=== PATIENT | female | born 1965 | race Caucasian/White ===

== ENCOUNTER 2021-05-18 09:02 | Outpatient (REF) | payer OTHER, SELFPAY ==
[2021-05-19 08:07] LABS: SARS COV2 IgG Negative (Negative)
== END 2021-05-18 09:03 | disposition home or self-care (01) ==
LOC: HO.MANLDS 09:02
PROVIDERS: PCP Internal Medicine; Visit Provider Physician Assistant
DX: U07.1 COVID-19 (principal)
CPT/HCPCS: 36415; 86769

== ENCOUNTER 2022-02-01 09:35 | Outpatient (REF) | payer OTHER, SELFPAY ==
--- NOTE | ~2022-02-01 | MM_ITS ---
EXAMINATION: MM SCREENING DIGITAL BREAST TOMOSYNTHESIS, BILATERAL CLINICAL INFORMATION: Screening. Asymptomatic. The lifetime risk of breast cancer based on the Tyrer-Cuzick Model is 27%. COMPARISON: Mammography: 08/15/2018, 03/22/2017, 09/18/2012 TECHNIQUE: Digital breast tomosynthesis is performed in both the craniocaudal and mediolateral oblique views along with computer-aided detection (CAD). Synthesized 2D images are generated from the tomosynthesis. Additional right CC view is provided. FINDINGS: There are scattered areas of fibroglandular density (ACR BI-RADS breast composition Category b). Parenchymal pattern is similar to prior exams. There is no interval mass or architectural abnormality or developing density. No abnormal calcifications. The axilla and skin contours are unremarkable. No significant changes. MM/MM tomosynthesis screening BI IMPRESSION: No mammographic evidence of malignancy. ASSESSMENT: BI-RADS 1: Negative RECOMMENDATION: 1. Routine annual mammography screening. 2. The lifetime risk of breast cancer based on the Tyrer-Cuzick Model is 27%. Additional annual adjunct screening with breast MRI may be of benefit in women with a risk score of 20% or greater. This patient's information was entered into a reminder system with a target due date for their next mammogram.
== END 2022-02-01 09:36 | disposition home or self-care (01) ==
LOC: HO.MAMMO 09:35
PROVIDERS: PCP Internal Medicine; Visit Provider Internal Medicine
DX: Z12.31 Encounter for screening mammogram for malignant neoplasm of breast (principal)
CPT/HCPCS: 77063; 77067

== ENCOUNTER 2022-02-08 09:47 | Outpatient (REF) | payer OTHER, SELFPAY ==
[2022-02-08 11:11] LABS: MANUAL DIFF FLAG NO
[2022-02-08 11:16] LABS: Basophils Absolute Auto 0.1 X10*3/uL (0.0-0.2); Basophils Percent Auto 0.8 % (0-2); Eosinophils Absolute Auto 0.3 X10*3/uL (0.0-0.4); Eosinophils Percent Auto 4.8 % (0-4); Hematocrit 40.8 % (37.0-47.0); Imm Gran Abs Auto 0.04 X10*3/uL (0.00-0.03); Imm Gran Pct Auto 0.6 % (0.0-0.4); Lymphocytes Absolute Auto 2.1 X10*3/uL (1.2-4.9); Mean Corpuscular HGB Conc 31.9 g/dl (31.0-35.0); Mean Corpuscular Hemoglobin 29.2 pg (27.0-33.0); Mean Corpuscular Volume 91.7 fL (80.0-98.0); Mean Platelet Volume 10.1 fL (9.4-12.3); Monocytes Absolute Auto 0.5 X10*3/uL (0.1-1.2); Monocytes Percent Auto 6.7 % (2-11); Neutrophils Absolute Auto 4.1 x10*3/uL (2.0-8.3); Neutrophils Percent Auto 58.1 % (45-73); Platelet Count 338 X10*3/uL (160-400); Red Blood Count 4.45 X10*6/uL (4.20-5.50); White Blood Count 7.1 X10*3/uL (4.8-10.8)
[2022-02-08 11:52] LABS: C Reactive Protein 0.28 mg/dL (< or = 0.50); Rheumatoid Factor < 15.0 IU/mL (<15.0)
[2022-02-08 11:57] LABS: Erythrocyte Sedimentation Rate 7 MM/HR (0-20)
[2022-02-09 13:27] LABS: Antibody to SS-A Antigen <1.0 NEG AI (<1.0 NEG); Antibody to SS-B Antigen <1.0 NEG AI (<1.0 NEG)
[2022-02-09 14:35] LABS: Anti Nuclear Antibody Screen NEGATIVE (NEGATIVE)
== END 2022-02-08 09:48 | disposition home or self-care (01) ==
LOC: HO.MANLDS 09:47
PROVIDERS: PCP Physician Assistant; Visit Provider Physician Assistant
DX: L40.59 Other psoriatic arthropathy (principal)
CPT/HCPCS: 36415; 85025; 85652; 86038; 86039; 86140; 86235; 86431

== ENCOUNTER 2022-04-19 09:18 | Outpatient (REF) | payer OTHER, SELFPAY ==
[2022-04-19 12:34] LABS: Alanine Aminotransferase 15 U/L (0-31); Albumin Level 4.3 g/dL (3.5-5.0); Alkaline Phosphatase 155 U/L (39-117); Anion Gap 15 (12-20); Aspartate Amino Transferase 15 U/L (5-31); Bilirubin Total 0.9 mg/dL (0.0-1.0); Blood Urea Nitrogen 14 mg/dL (9-16); Carbon Dioxide 24 mmol/L (22-29); Chloride 107 mmol/L (96-108); Cholesterol 185 mg/dL; Estimated Glomerular Filt Rate > 60; Glucose Random 86 mg/dL (60-115); HDL Cholesterol 65 mg/dL; LDL Cholesterol Calculated 109 mg/dl; Potassium 3.7 mmol/L (3.3-5.1); Sodium 142 mmol/L (135-145); Total Protein 7.2 g/dL (6.5-8.0); Triglycerides 57 mg/dL
== END 2022-04-19 09:19 | disposition home or self-care (01) ==
LOC: HO.MANLDS 09:18
PROVIDERS: Visit Provider Physician Assistant
DX: E78.2 Mixed hyperlipidemia (principal)
CPT/HCPCS: 36415; 80053; 80061

== ENCOUNTER 2023-07-25 09:30 | Outpatient (REF) | payer OTHER, SELFPAY ==
--- NOTE | ~2023-07-25 | MM_ITS ---
EXAMINATION: MM SCREENING DIGITAL BREAST TOMOSYNTHESIS, BILATERAL CLINICAL INFORMATION: Screening. Asymptomatic. COMPARISON: Mammography: This study is compared with prior exams dating back to 2017. TECHNIQUE: Digital breast tomosynthesis is performed in both the craniocaudal and mediolateral oblique views along with computer-aided detection (CAD). Synthesized 2D images are generated from the tomosynthesis. FINDINGS: The breasts are almost entirely fatty (ACR BI-RADS breast composition Category a). There are no significant masses, abnormal calcifications, or other abnormalities. MM/MM tomosynthesis screening BI IMPRESSION: No mammographic evidence of malignancy. ASSESSMENT: BI-RADS BI-RADS 1 - Negative RECOMMENDATION: Routine annual mammography screening. 1 year F/U This examination should not preclude the clinical evaluation of a suspicious palpable abnormality. This patient's information was entered into a reminder system with a target due date for their next mammogram.
== END 2023-07-25 09:31 | disposition home or self-care (01) ==
LOC: HO.MAMMO 09:30
PROVIDERS: PCP Internal Medicine; Visit Provider Internal Medicine
DX: Z12.31 Encounter for screening mammogram for malignant neoplasm of breast (principal)
CPT/HCPCS: 77063; 77067

== ENCOUNTER → 2023-07-25 10:15 | Outpatient (BNV) | payer OTHER, SELFPAY | PROVIDERS: PCP Internal Medicine; Visit Provider Radiology Diagnostic Radiology | DX: Z12.31 Encounter for screening mammogram for malignant neoplasm of breast (principal) | CPT/HCPCS: 77063; 77067 ==

== ENCOUNTER 2025-01-26 10:19 | Outpatient (REF) | payer OTHER, SELFPAY ==
[2025-01-26 13:24] LABS: MANUAL DIFF FLAG NO
[2025-01-26 13:27] LABS: Basophils Absolute Auto 0.1 X10*3/uL (0.0-0.2); Basophils Percent Auto 0.9 % (0-2); Eosinophils Absolute Auto 0.2 X10*3/uL (0.0-0.4); Eosinophils Percent Auto 2.7 % (0-4); Hematocrit 35.5 % (37.0-47.0); Hemoglobin 11.6 g/dl (12.0-16.0); Imm Gran Abs Auto 0.03 X10*3/uL (0.00-0.03); Imm Gran Pct Auto 0.4 % (0.0-0.4); Lymphocytes Absolute Auto 2.7 X10*3/uL (1.2-4.9); Mean Corpuscular HGB Conc 32.7 g/dl (31.0-35.0); Mean Corpuscular Hemoglobin 28.7 pg (27.0-33.0); Mean Corpuscular Volume 87.9 fL (80.0-98.0); Mean Platelet Volume 10.4 fL (9.4-12.3); Monocytes Absolute Auto 0.5 X10*3/uL (0.1-1.2); Monocytes Percent Auto 6.1 % (2-11); Neutrophils Percent Auto 53.9 % (45-73); Platelet Count 376 X10*3/uL (160-400); Red Blood Count 4.04 X10*6/uL (4.20-5.50); Red Cell Distribution Width 14.8 % (11.0-16.0); White Blood Count 7.4 X10*3/uL (4.8-10.8)
[2025-01-26 13:37] LABS: Estimated Average Glucose 108 mg/dL; Hemoglobin A1C 111.1286 umol/L; Hemoglobin A1c % 5.4 % (<6.0); Total Hemoglobin (HGBA1C) 3128.3282 umol/L
[2025-01-26 13:54] LABS: Alanine Aminotransferase 19 U/L (0-31); Albumin Level 3.9 g/dL (3.5-5.0); Alkaline Phosphatase 98 U/L (39-117); Anion Gap 12 (12-20); Aspartate Amino Transferase 26 U/L (5-31); Bilirubin Total 0.6 mg/dL (0.0-1.0); Blood Urea Nitrogen 15 mg/dL (9-16); Calcium 8.9 mg/dL (8.4-10.2); Carbon Dioxide 26 mmol/L (22-29); Chloride 106 mmol/L (96-108); Estimated Glomerular Filt Rate > 60; Glucose Random 77 mg/dL (60-115); Potassium 3.7 mmol/L (3.3-5.1); Sodium 140 mmol/L (135-145); Total Protein 7.2 g/dL (6.5-8.0)
[2025-01-26 14:03] LABS: Thyroid Stimulating Hormone 95.14 uIU/mL (0.32-4.0)
[2025-01-26 14:48] LABS: T4 Thyroxine 4.7 ug/dL (4.5-12.0)
== END 2025-01-26 10:20 | disposition home or self-care (01) ==
LOC: HO.MANLDS 10:19
PROVIDERS: Visit Provider Physician Assistant
DX: E00.0 Congenital iodine-deficiency syndrome, neurological type (principal); R73.01 Impaired fasting glucose
CPT/HCPCS: 36415; 80053; 83036; 84436; 84443; 85025

== ENCOUNTER 2025-02-27 10:53 | Outpatient (REF) | payer OTHER, SELFPAY ==
--- NOTE | ~2025-02-27 | MR_ITS ---
EXAMINATION: MR BRAIN WITHOUT CONTRAST CLINICAL INFORMATION: Headache. Blurred vision. Dizziness. Prior strokes. COMPARISON: December 17, 2017. TECHNIQUE: MRI of the brain was obtained using routine sequences without contrast. FINDINGS: No restricted diffusion. No acute intracranial hemorrhage, mass effect, midline shift, hydrocephalus or herniation. Sanchez-white matter differentiation is normal. Focal encephalomalacia/volume loss without seated susceptibility signal and hyperintense T2 FLAIR signal involving the posterior inferior left cerebellum. Bilateral multifocal patchy and punctate deep periventricular white matter and subcortical white matter hyperintense T2 FLAIR signal, the most conspicuous, 5 mm in maximum diameter, in the left frontal opercular white matter. Flow-void signal within the main cerebral vessels is normal. Prominence of the extra-axial CSF spaces cerebral sulci and ventricles. Sellar/suprasellar region is normal. Craniocervical junction is intact and normal. MR/MR head/brain wo con IMPRESSION: No acute stroke/nonhemorrhagic ischemia. Prior vascular insult left PICA territory. Small vessel occlusive disease. 5 mm hyperintense T2 FLAIR signal subcortical left frontal opercular. This could be related to small vessel occlusive disease. Stable since 2017. Electronically signed by: Daniel Miller MD 03/01/2025 11:14 AM EDT
== END 2025-02-27 10:54 | disposition home or self-care (01) ==
LOC: HO.MRI 10:53
PROVIDERS: PCP Internal Medicine; Visit Provider Physician Assistant
DX: I63.9 Cerebral infarction, unspecified (principal)
CPT/HCPCS: 70551

== ENCOUNTER → 2025-02-27 11:17 | Outpatient (BNV) | payer OTHER, SELFPAY | PROVIDERS: PCP Internal Medicine; Visit Provider Radiology Diagnostic Radiology | DX: R50.9 Fever, unspecified (principal); R42 Dizziness and giddiness; H53.8 Other visual disturbances | CPT/HCPCS: 70551 ==

== ENCOUNTER 2025-03-17 20:11 | Outpatient (REF) | payer OTHER, SELFPAY | END 2025-03-17 20:12 | disposition home or self-care (01) | LOC: HO.MRI 20:11 | PROVIDERS: Visit Provider Physician Assistant | DX: Z13.89 Encounter for screening for other disorder (principal) ==

== ENCOUNTER 2025-06-28 09:13 | Outpatient (REF) | payer OTHER, SELFPAY ==
--- OUTSIDE RECORDS SUMMARY | 2025-06-28 10:14 | XMS_ITS | Clinical Summary ---
Author Organization [facility] Address [address] [place], [place] [id number] Phone Care Team Providers Care Vacuum Technician Name Role Phone Nba Bragg DO Primary Care Provider [phone] Allergies Active Allergy Reactions Criticality Noted Date Comments Codeine Dizziness 12/24/2023 Levonorgestrel-Ethinyl Estrad Sneezing 2023 Morphine 12/24/2023 Medications lisinopril (PRINIVIL,ZESTR IL) 20 MG tablet Take 20 mg by mouth daily. Active levothyroxine (TIROSINT) 150 mcg Cap Take 150 mcg by mouth daily. 2 tablets Active apixaban (ELIQUIS) 5 mg tablet Take 5 mg by mouth 2 (two) times a day. Active cyanocobalam-me cobalamin-folic 1,000-200 mcg ODT Active cyanocobalamin (VITAMIN B-12) 1,000 mcg/mL injection INJECT 1ML UNDER THE SKIN ONCE WEEKLY - NEED APPOINTMENT FOR FURTHER REFILLS 4 Active FLUoxetine (PROZAC) 20 MG capsule Take 3 capsules by mouth every morning. 4 Active gemfibroziL (LOPID) 600 MG tablet Take 600 mg by mouth daily. Active multivit with minerals/lutein (MULTIVITAMIN 50 PLUS ORAL) Active BD INTEGRA SYRINGE 3 mL 23 gauge x 1 Syrg USE ONE SYRINGE EVERY WEEK 4 Active vitamin D3-vit K1-vit MK4-MK7 50-500-1,500 mcg Cap Active rosuvastatin (CRESTOR) 5 MG tablet Take 1 tablet (5 mg total) by mouth daily. 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 Not on broderick e 04/22/2023 Are you concerned about learning? Not on file 04/22/2023 No 04/22/2023 No 04/22/2023 Digital Access Answer Date Recorded No 04/22/2023 No 04/22/2023 Reliable internet access at home? Not on file 04/22/2023 Device with a working camera? Not on file Comments Unknown Sex and Gender Information Value Date Recorded Sex Assigned at Female 12/21/2023 6:45 AM EST Legal Sex Female 5:42 PM EST Gender Identity Female 12/21/2023 6:45 AM EST Sexual Orientation Not on file Last Filed Vital Signs Vital Sign Reading Time Taken Comments Blood Pressure 118/90 12/24/2023 8:28 AM EST Pulse 101 12/24/2023 8:28 AM EST Temperature - - Respiratory Rate - - Oxygen Saturation 97% 12/24/2023 8:28 AM EST Inhaled Oxygen Concentration - - Weight 139.3 kg (307 lb) 12/24/2023 8:28 AM EST Height - - Body Mass Index - - Plan of Treatment Health Maintenance Due Date Last Done Comments Adult Td,Tdap Booster 1963 CREATININE LEVEL 1963 POTASSIUM LEVEL 1963 TSH LEVEL 1963 DEPRESSION SCREENING 1975 SMOKING Hx and SMOKELESS TOB ACCO SCREENING 1976 HEPATITIS C SCREENING 1981 HIV ONE-TIME SCREENING (18-6 5 YEARS) 1981 LIPID PANEL 1981 PAP SMEAR 1984 MAMMOGRAM 2003 COLOGUARD 2008 COLONOSCOPY 2008 COLORECTAL CANCER SCREENING 2008 FIT TEST 2008 FOBT 2008 SIGMOIDOSCOPY 2008 VIRTUAL COLONOSCOPY 2008 PNEUMOCOCCAL VACCINES (50+ y ears) (1 of 1 - PCV) 2013 ZOSTER VACCINES (1 of 2) 2013 RSV VACCINE (1 - Risk 60-74 years 1-dose series) 2023 COVID-19 VACCINE (2023-2 5 season) 2024 HEPATITIS A VACCINES Aged Out No long er eligible based on patient's age to complete this topic HIB VACCINES Aged Out No longer eligi ble based on patient's age to complete this topic MENINGOCOCCAL VACCINES (ACWY) Aged Out No longer eligible based on patient's age to complete this topic MENINGOCOCCAL VACCINES (B) Aged Out N o longer eligible based on patient's age to complete this topic Medical Devices Not on file Insurance Care Teams Vacuum Technician Relationship Specialty Start Date End Date Nba Bragg DO [email or web address] PCP - General Internal Medicine 04/22/23 Additional Source Comments The information contained in this document represents components of the legal health record. It is not the complete legal health record.[facility]
--- OUTSIDE RECORDS SUMMARY | 2025-06-28 10:15 | XMS_ITS | Patient Health Record ---
Author Organization [facility] Address [address] [place] [id number] Care Team Providers Care Pollution Control Chemist Name Role Phone Guerra Cesar Unavailable [phone] Reason For Referral No Information Plan Of Treatment No Information
[2025-06-29 07:18] LABS: Lyme Abs Screen <0.90 index
== END 2025-06-28 09:14 | disposition home or self-care (01) ==
LOC: HO.MANLDS 09:13
PROVIDERS: Visit Provider Physician Assistant
DX: Z01.84 Encounter for antibody response examination (principal); W57.XXXS Bitten or stung by nonvenomous insect and other nonvenomous arthropods, sequela
CPT/HCPCS: 36415; 86617; 86618

== ENCOUNTER 2025-09-09 09:47 | Outpatient (REF) | payer OTHER, SELFPAY ==
--- OUTSIDE RECORDS SUMMARY | 2025-09-09 10:58 | XMS_ITS | Encounter Summary ---
Author Organization [facility] Address [address] [place] [phone] Phone Care Team Providers Care Rehabilitation Therapy Technician Name Role Phone Nba Bragg DO Primary Care Provider Encounter Details Date Type Department Care Team (Late st Contact Info) Description 12/24/2023 Procedure Pass Echo Lab [address] [place] [address] Social History Tobacco Use Types Packs/Day Years [...] AM EST Sexual Orientation Not on file documented as of this encounter Plan of Treatment Not on file documented as of this encounter Visit Diagnoses Not on filedocumented in this encounter Care Teams Rehabilitation Therapy Technician Relationship Specialty Start Date End Date Nba Bragg DO PCP - General Internal Medicine 04/22/23 documented as of this encounter Additional Source Comments The information contained in this document represents components of the legal health record. It is not the complete legal health record.[facility]
--- OUTSIDE RECORDS SUMMARY | 2025-09-09 10:58 | XMS_ITS | Clinical Summary ---
Author Organization [facility] Address [address] [place], [place] [id number] Phone Care Team Providers Care Respite Coordinator Name Role Phone Nba Bragg DO Primary Care Provider [phone] Allergies Active Allergy Reactions Criticality Noted Date [...] 2013 ZOSTER VACCINES (1 of 2) 2013 INFLUENZA VACCINE (#1) 2025 COVID-19 VACCINE ( - 2024-2 6 season) 2025 RSV VACCINE (1 - 1-dose 75+ series) 2038 HEPATITIS A VACCINES Aged Out No long [...] Devices Not on file Insurance Care Teams Respite Coordinator Relationship Specialty Start Date End Date Nba Bragg DO [email or web address] PCP - General Internal Medicine 04/22/23 Additional Source Comments The information contained in this document represents components of the legal health record. It is not the complete legal health record.[facility]
--- OUTSIDE RECORDS SUMMARY | 2025-09-09 10:58 | XMS_ITS | Patient Health Record ---
Author Organization [facility] Address [address] [place] [id number] Care Team Providers Care Machine Design Checker Name Role Phone Guerra Cesar Unavailable [phone] Reason For Referral No Information Plan Of Treatment No Information
--- OUTSIDE RECORDS SUMMARY | 2025-09-09 10:58 | XMS_ITS | Data Portability ---
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,[place] [address] 11/26/2024 13:59:06 11/26/2024 15:21:43 Obesity 198615257 E66.01 phentermin e not covered/no t successful will put in for zepbound Multiple b enign melanocytic nevi 244113058 D22.39 will set up with dermatolog ist [id number] Nba Br[facility] [address] [facility],[place] [address] 02/16/2025 11:34:16 02/16/2025 14:28:31 Cerebrovascular accident 544851308 I63.9 will set Chronic uveitis 95241956 2 H20.13 agreed to full work up Lacunar infarction 64260 8000 G46.7 recheck brain; new symptoms; h/x of brain infarction Depression screening 171 145829 Z13.31 stable Hypothyroidism 44258888 E00.0 adjusted dose, knows to recheck [id number] Nba Br[facility] [address] [facility],[place] [address] 06/17/2025 13:19:40 06/17/2025 15:47:16 Acute bronchitis 86139222 J20.9 73861737 Breast yaw plasm screening status 317785147 Z12.31 765842 needs MM [id number] Nba Bragg [facility] [address] [facility],[place] [address] 09/09/2025 09:04:04 09/09/2025 09:41:19 Depression screening 346277885 Z13.31 stable Morbid obesity 927443826 E66.01 will try for the medication again, she meets all criteria to be on this medication also already seen by endo Essential hypertension 21590997 I10 increased to 20 mg Hyperlipidemia 28098130 E78.5 Hypercholesterolemia 136 71518 E78.2 will recheck her BW after diet change Impaired f asting glycemia 386756135 R73.01 Hypothyroidism 65941287 E00.0 adjusted dose, knows to recheck Health Concerns Section Related Observation LastModified by Organization Detai ls LastModified Time None Recorded Concern Status LastModified by Organization Details LastModified Time None Recorded Advance Directives Directive None Recorded Payers Insurance Date Sequence Insurance Name Policy Number Policy Patel Covered Member ID Patel Member ID Guarantor Name 09/06/2025 1 [facility] [id number] Cherri Anival [id number] Cherri Anival 11/26/2024 2 [place] [facility] Cherri J Anival [id number] Cherri Anival Notes Date Note Type Note Provider Name and Address Organization Details Recorded Time 4 text/htm l ROS as noted in the HPI f/u sleep medicine sleep apnea: the patient still has not gotten an appt, has called and they say the need a referral sent in vineet Grier to get her in (Friday appt) is still trying to work on diet and exercise, trying to work on getting the rest of her conditions under control working with patient to continue trying to get her CPAP replaced MARY ANN MCGRAW [address] [place], [address], [facility] [place] [facility] 02/06/2024 10:17:41 5 text/htm l ROS as noted in the HPI c/o lesion on head the patient has an SK on the forehead above her left eyebrow, thick stuck on appearance, flesh colored father has had basal and squamous cell carcinomarecommended fu with [facility] the patient has not lost weightcannot go for another gastric bypass given complications from previous surgery failed phentermine, weight loss exercise, calorie restriction recommended zepbound weight at home is 302 lbs MARY NAN MCGRAW [address] [place], [address], [facility] [place] [facility] 11/26/2024 14:52:39 5 text/htm l ROS as noted in the HPI c/o new issue with brain the patient reports that she has had significant vision changeseye doctor found sig membranous tearing behind the retinathe patient has f/u with [facility] in April for surgical repair recommended MRI for f/u given worsening vision, hx of CVA and previous occipital infarct/atrophy recommended by eye doc as well to recheckher neurologist is retiring will cover her meds from neuro MARY ANN MCGRAW [address] [place], [address], [facility] [place] [facility] 02/16/2025 12:40:41 5 text/htm l ROS as noted in the HPI c/o cough the patient has had cough x 3 weeksthe patient reports that she has a cold originally from one of her patientsthe patient reports that it has productive, sticky, beigethe patient has tried OTC, not effective worse the patient reports that it is worse at night with laying flat decreased breath sounds in the lisa lower bases of her lungs MARY ANN MCGRAW [address] [place], [address], [facility] [place] [facility] 06/17/2025 15:30:15 5 text/htm l ROS as noted in the HPI medication check the patient is here today for a medication f/u also trying to get her on the zepbound, patient qualifies, her BMI is 49.4, HLD, HTN, sleep apnea, IFG the patient is up to 306 pounds from 295 lbs, she has been dieting and exercising, reduction of calories and exercises (walking) at least 30 minutes every other day the patient BP is elevated in office today, is currently being treated with medication needs to recheck her levels the patient is upset about work and fam, talked through it, med prozac is helping but she has had a lot of personal fam issues MARY ANN MCGRAW [address] [place], [address], [facility] [place] [facility] 09/09/2025 09:40:25 OBGyn Episode No OBEpisode recorded.
--- OUTSIDE RECORDS SUMMARY | 2025-09-09 10:58 | XMS_ITS | Continuity of Care Document ---
Author Organization [facility], [facility] Address [address] [facility] [place] [address] [place] [address] Assessment No assessment recorded. Plan of Treatment Reminders Order Date Submit Date Provider Last Modified By Organization Details Last Modified Time Details Appointments FOLLOW UP 15 2024 09:30A M MARY ANN MCGRAW Not available Not available Not available Lab hemoglobi n A1c, QN, blood 2024 025 [facility], [address] [place] [address], [address], 09/09/2025 09:36:08 CMP, serum or plasma 2024 025 [facility], [address] [place] [address], [address], 09/09/2025 09:36:08 CBC w/ auto diff 2024 025 [facility], [address] [place] [address], [address], 09/09/2025 09:36:08 TSH + free T4, serum 2024 025 [facility], [address] [place] [address], [address], 09/09/2025 09:36:08 lipid panel, serum 2024 025 [facility], [address] [place] [address], [address], 09/09/2025 09:36:08 Referral None recorded. Procedures None recorded. Surgeries None recorded. Imaging None recorded. Medication Orders tirzepati de 2.5 mg/0.5 mL subcutane ous pen injector 2024 025 [id number], [address] [facility], [place], [address], 09/09/2025 09:28:31 Patient TargetsNo targets recorded. Patient InstructionsNo instructions recorded. Reason for Referral None Reported. Problems Name Problem SNOMED Code Status Onset Date Resolution Date Notes Provider Name and Address Organization Details Recorded Time Lacunar infarcti on 960826393 Active 2017 chronic, multiple , left greater than right Thuy Collazo NP, S [address] [place], [address], [facility] Internal [facility] 8 15:27:18 Hypothyr oidism 27658694 Active 2017 [employer] [facility] 4 11:57:49 History of iron deficien cy 068120518 Active 2017 s/p gastric bypass surgery Thuy Collazo NP, S [address] [place], [address], [facility] 8 15:23:50 Chronic nonalcoh olic liver disease 53995448 Active 2017 [employer] 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 Tori Tenorio, PASUP [address] [place], [address], [facility] 9 11:37:29 History of malignan t lymphoma 132360843 Completed 201903/09/2020 Removal Reason: as a child Nba Bragg, DO [address] [place], [address], [facility] 0 09:27:08 Hypercho lesterol emia 37373845 Active 2021 [facility] 4 11:57:48 Vesicula r eczema 160436603 Active [facility] 4 11:57:48 Psoriati c arthriti s 296335345 Active [facility] 4 11:57:48 Injury of cauda equina 965055210 Active 2021 MARY ANN MCGRAW [address] [place], [address], [facility] 2 09:36:46 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 2 13:19:53 Chronic uveitis 746332548 Active 2022 Loan Joe null, 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 5 15:12:07 Acute bronchit is 94394543 Active 2024 MARY ANN MCGRAW [address] [place], [address], [facility] 5 15:12:21 Bronchit is 30945670 Active 2024 MARY ANN MCGRAW [address] [place] [address], [address], [facility] 5 10:21:37 Problem Notes None recorded. Procedures Surgical History Date Name Laterality Status Provider Name and Address Organization Details Recorded Time 8 Partial removal of colon completed Thuy Collazo NP, S [address] [place] [address], [address], [facility] 03/04/2018 15:25:32 4 Gastric Bypass completed Thuy Collazo NP, S [address] [place] [address], [address], [facility] 03/04/2018 15:24:46 Imaging Results None recorded. Procedure Notes None recorded. Medical Equipment None Reported. Allergies Allergen ID Allergen Name Allergen Category Reaction Reaction Severity Criticality Documentation Date Start Date Code Code System Note Provider Name and Address Organization Details Recorded Time 1073 codeine medicatio n Not available Not available Not available 03/04/2018 2670 RxNorm Thuy Collazo NP, S [address] [place] [address], [address], [facility] 8 15:22:04 1074 morphine medicatio n Not available Not available Not available 03/04/2018 7052 RxNorm Thuy Collazo NP, S [address] [place] [address], [address], [facility] 8 15:22:16 Medications Name Sig Start Date [...] Not Available Not Available Not Avai lable gabapenti n 06/25 completed Not Available Not [...] Not Available Not Available Not Avai lable Zepbound 2.5 mg/0.5 mL subcutane ous pen injector Inject 2.5 mg every week by subcutan eous route for 30 days. 09/09 completed Not Available Not Available Not Available tirzepati de 2.5 mg/0.1 mL subcutane ous syringe INJECT 2.5 MG SUBCUTAN EOUSLY WEEKLY DIRECTED active Not Available Not Available No t Available Vitals Date Recorded Body height Body mass index (BMI) Body weight Heart rate Oxygen saturation Oxygen saturation in Arterial blood by Pulse oximetry Systolic And Diastolic Provider Name and Address Organization Details Last Updated DateTime 167.64 cm 49.4 kg/m2 256098. 27 g 80 /min 98 % 98 % 140/78 mm[Hg] Chanda Barnett [facility] 09:10:55 Social History Question Answer Notes LastModified by Organizat ion Details LastModified Time Tobacco Smoking Status Former Smoker very briefly years ago [facility] 02/08/2022 09:10:09 What Was The Date Of Your Most Recent Tobacco Screening? 09/09/2025 [email or web address] Information not available 09/09/2025 Sex: Unknown Functional Status None recorded. Mental Status None recorded. Family History Nothing Reported. Medical History Condition Response Coronary Artery Disease N Other N Gout N Kidney Stones N Blood Diseases N Breast Cancer N Blood Transfusion N Depression N COPD N Lung Disease N Defects or Inherited Disease N Anxiety Disorder N Muscle, Joint, or Bone Problems N Obesity N Vision or Eye Problems N Arthritis N Polyps N Infertility N Mental Disorder N Cancer N Varicosities N Stroke N Endometriosis N Bladder or Kidney Problems N High Cholesterol N Liver Disease N Headaches N Fibromyalgia N Kidney Disease N Allergies/Hayfever N Heart Problems N Hospitalizations N Thyroid Problems N GI Problems N Skin Problems N Eating Disorder N Anemia N MRSA exposure N Constipation N Mental Illness N Ovarian Cancer N Diabetes N Seizures/Epilepsy N Tuberculosis N Congestive Heart Failure (CHF) N Eczema N Diverticulitis N Abuse/Domestic Violence N Asthma N Reflux/GERD N Hepatitis N [...] 50 mcg/0.25mL dose 12/08/2020 completed Not Available [facility] 4 16:35:23 COVID-19, mRNA, LNP-S, PF, 100 mcg/0.5mL dose or 50 mcg/0.25mL dose 01/05/2021 completed Not Available [facility] 4 16:35:24 COVID-19, mRNA, LNP-S, PF, 100 mcg/0.5mL dose or 50 mcg/0.25mL dose 09/20/2021 completed Not Available [facility] 4 16:35:24 Tdap 11/10/2015 completed Not Available [facility] 12/25/2023 16:35:24 Past Encounters Encounter ID Performer Location Encounter Start Date Encounter Closed Date Diagnosis/Indication Diagnosis SNOMED-CT Code Diagnosis ICD10 Code Diagnosis IMO Codes Diagnosis Note [id number] Nba Bragg DO [facility] [address] [facility],[place] [address] 09/09/2025 09:04:04 09/09/2025 09:41:19 Depression screening 673910246 Z13.31 stable Morbid obesity 195095504 E66.01 will try for the medication again, she meets all criteria to be on this medication also already seen by franklyn Essential hypertension 75600688 I10 increased to 20 mg Hyperlipidemia 98850420 E78.5 Hypercholesterolemia 136 63868 E78.2 will recheck her BW after diet change Impaired f asting glycemia 858894481 R73.01 Hypothyroidism 64368415 E00.0 adjusted dose, knows to recheck Health Concerns Section Related Observation LastModified by Organization Detai ls LastModified Time None Recorded Concern Status LastModified by Organization Details LastModified Time None Recorded Payers Encounter Date Sequence Insurance Name Policy Number Policy Patel Covered Member ID Patel Member ID Guarantor Name 09/09/[address] [place] [address] [id number] Cherri Anival [id number] Cherri Anival Notes Date Note Type Note Provider Name a nd Address Organization Details Recorded Time 09/09/2025 text/html ROS as noted in the HPI medication [...] of personal fam issues MARY ANN MCGRAW [address] [place] [address], [place], [address], [facility] 09/09/2025 09:40:25 OBGyn Episode No OBEpisode recorded.
[2025-09-09 13:19] LABS: MANUAL DIFF FLAG NO
[2025-09-09 13:26] LABS: Hematocrit 39.1 % (37.0-47.0); Hemoglobin 12.0 g/dl (12.0-16.0); Imm Gran Abs Auto 0.03 X10*3/uL (0.00-0.03); Imm Gran Pct Auto 0.4 % (0.0-0.4); Lymphocytes Absolute Auto 2.2 X10*3/uL (1.2-4.9); Mean Corpuscular HGB Conc 30.7 g/dl (31.0-35.0); Mean Corpuscular Hemoglobin 26.7 pg (27.0-33.0); Mean Corpuscular Volume 86.9 fL (80.0-98.0); NRBC Abs Auto 0.000 X10*3/uL (0.0-0.012); NRBC Pct Auto 0.0 /100WBC (0.0-0.2); Platelet Count 391 X10*3/uL (160-400); Red Blood Count 4.50 X10*6/uL (4.20-5.50); White Blood Count 8.3 X10*3/uL (4.8-10.8)
[2025-09-09 13:45] LABS: Alanine Aminotransferase 21 U/L (0-31); Albumin Level 4.2 g/dL (3.5-5.0); Alkaline Phosphatase 113 U/L (39-117); Anion Gap 11 (12-20); Aspartate Amino Transferase 29 U/L (5-31); Blood Urea Nitrogen 17 mg/dL (9-16); Calcium 8.9 mg/dL (8.4-10.2); Carbon Dioxide 25 mmol/L (22-29); Chloride 107 mmol/L (96-108); Cholesterol 214 mg/dL (<200); Estimated Glomerular Filt Rate > 60; HDL Cholesterol 70 mg/dL (>40); Hemoglobin A1C 95.6479 umol/L; Potassium 4.1 mmol/L (3.3-5.1); Sodium 139 mmol/L (135-145); Total Hemoglobin (HGBA1C) 2764.3695 umol/L; Total Protein 7.2 g/dL (6.5-8.0); Triglycerides 61 mg/dL (<150)
[2025-09-09 14:43] LABS: Free T4 (Free Thyroxine) 0.56 ng/dL (0.71-1.85)
== END 2025-09-09 09:48 | disposition home or self-care (01) ==
LOC: HO.MANLDS 09:47
PROVIDERS: Visit Provider Physician Assistant
DX: E78.2 Mixed hyperlipidemia (principal); R73.01 Impaired fasting glucose; E00.0 Congenital iodine-deficiency syndrome, neurological type
CPT/HCPCS: 36415; 80053; 80061; 83036; 84439; 84443; 85025